=== PATIENT | female | born 1990 | race Caucasian/White ===

== ENCOUNTER 2017-06-17 04:00 | Emergency (ER) | payer MEDICAID ==
[~2017-06-17] VITALS: Ht 165.1 cm; Wt 89.0 kg
[2017-06-17] MEDS ORDERED: CETIRIZINE 10MG TABLET PO STA (05:24)
[2017-06-17 05:46] LABS: BASOPHILS % 0.4 % (0.0-2.0); EOSINOPHILS % 2.7 % (0.0-5.0); HEMATOCRIT. 33.7 % (36.0-48.0); LYMPHOCYTES % 22.8 % (20.0-50.0); MEAN CORPUSCULAR VOLUME 85.4 fL (81.0-99.0); MONOCYTES % 7.1 % (2.0-8.0); PLATELET 173 x1000/uL (130-400); RED BLOOD CELL COUNT 3.94 mill/uL (4.2-5.4); RED CELL DISTRIBUTION WIDTH 13.9 % (11.6-14.6)
[2017-06-17 05:53] LABS: CHLORIDE 108 mEq/L (98-107)
[2017-06-17 08:17] LABS: CLARITY URINE CLEAR (CLEAR); COLOR URINE YELLOW (YELLOW); KETONES URINE NEGATIVE (NEGATIVE); LEUKOCYTE ESTERASE URINE NEGATIVE (NEGATIVE); NITRITE URINE NEGATIVE (NEGATIVE); OCCULT BLOOD URINE NEGATIVE (NEGATIVE); PROTEIN URINE NEGATIVE (NEGATIVE); UROBILINOGEN URINE 0.2 E.U./dL (0.2-1.0)
[2017-06-17 08:30] VITALS: BP 126/66
== END 2017-06-17 08:52 | disposition home or self-care (01) ==
LOC: ER 04:00
DX: O26.893 Other specified pregnancy related conditions, third trimester (principal); T78.40XA Allergy, unspecified, initial encounter; L29.9 Pruritus, unspecified; Z3A.32 32 weeks gestation of pregnancy; X58.XXXA Exposure to other specified factors, initial encounter; O9A.213 Injury, poisoning and certain other consequences of external causes complicating pregnancy, third trimester
CPT/HCPCS: 36415; 80053; 81003; 85025; 99284

== ENCOUNTER 2018-06-09 15:00 | Emergency (ER) | payer MEDICAID ==
[~2018-06-09] VITALS: Ht 165.1 cm; Wt 78.0 kg
[2018-06-09] MEDS ORDERED: IBUPROFEN 400MG TABLET PO ONE (18:00)
[2018-06-09 19:03] VITALS: BP 118/84
== END 2018-06-09 19:08 | disposition left against medical advice (07) ==
LOC: ER 15:00
DX: M25.512 Pain in left shoulder (principal); V49.88XA Car occupant (driver) (passenger) injured in other specified transport accidents, initial encounter; Y93.89 Activity, other specified; Y92.89 Other specified places as the place of occurrence of the external cause; Y99.8 Other external cause status
CPT/HCPCS: 81025; 99282

== ENCOUNTER 2020-05-10 09:47 | Emergency (ER) | payer MEDICAID ==
[~2020-05-10] VITALS: Ht 165.1 cm; Wt 85.0 kg
[2020-05-10 09:50] VITALS: BP 128/82
[2020-05-10 10:37] LABS: CLARITY URINE CLEAR (CLEAR); COLOR URINE YELLOW (YELLOW); KETONES URINE NEGATIVE (NEGATIVE); LEUKOCYTE ESTERASE URINE NEGATIVE (NEGATIVE); NITRITE URINE NEGATIVE (NEGATIVE); OCCULT BLOOD URINE NEGATIVE (NEGATIVE); PH URINE 7.5 (4.5-8.0); PROTEIN URINE NEGATIVE (NEGATIVE); SPECIFIC GRAVITY URINE 1.022 (1.005-1.030)
== END 2020-05-10 11:27 | disposition home or self-care (01) ==
LOC: ER 10:57
DX: R10.2 Pelvic and perineal pain (principal)
CPT/HCPCS: 81003; 99283

== ENCOUNTER 2020-06-21 10:35 | Observation (INO) | payer MEDICAID ==
[2020-06-21] MEDS ORDERED: PNV1TABL76 MT (11:50)
== END 2020-06-21 11:55 | disposition home or self-care (01) ==
LOC: 8 EST LDRP 10:35
PROVIDERS: ADMIT Obstetrics & Gynecology; ATTEND Obstetrics & Gynecology
DX: O12.02 Gestational edema, second trimester (principal); O26.892 Other specified pregnancy related conditions, second trimester; R10.9 Unspecified abdominal pain; Z3A.25 25 weeks gestation of pregnancy
CPT/HCPCS: 59025; G0378; 99281

== ENCOUNTER 2020-08-14 08:48 | Observation (INO) | payer MEDICAID ==
[~2020-08-14] VITALS: Ht 167.6 cm; Wt 98.4 kg
[~2020-08-14 08:48] MED LIST: PNV1TABL76 MT
[2020-08-14] MEDS ORDERED: LACTATED RINGERS 1,000 ML IV SCH (10:00)
[2020-08-14 10:59] LABS: CLARITY URINE CLOUDY (CLEAR); COLOR URINE YELLOW (YELLOW); KETONES URINE NEGATIVE (NEGATIVE); LEUKOCYTE ESTERASE URINE TRACE (NEGATIVE); NITRITE URINE NEGATIVE (NEGATIVE); OCCULT BLOOD URINE NEGATIVE (NEGATIVE); PROTEIN URINE NEGATIVE (NEGATIVE); SPECIFIC GRAVITY URINE 1.019 (1.005-1.030); UROBILINOGEN URINE 0.2 E.U./dL (0.2-1.0)
== END 2020-08-14 12:40 | disposition home or self-care (01) ==
LOC: 8 EST LDRP 08:48
PROVIDERS: ADMIT Obstetrics & Gynecology; ATTEND Obstetrics & Gynecology
DX: O62.9 Abnormality of forces of labor, unspecified (principal); O26.893 Other specified pregnancy related conditions, third trimester; R10.2 Pelvic and perineal pain; Z3A.33 33 weeks gestation of pregnancy
CPT/HCPCS: 59025; 76805; 76817; 76818; 81003; 82731; 96360; 96361; G0378; 99281; J7120